=== PATIENT | female | born 1965 | race Two or more races ===

== ENCOUNTER 2024-03-11 13:42 | Emergency (ER) | payer MEDICAID, OTHER ==
[~2024-03-11] VITALS: Ht 167.6 cm; Wt 65.0 kg
[2024-03-11 13:48] VITALS: BP 0/0; PULSE 0; RESP 0; O2SAT 0
--- NOTE | 2024-03-11 13:49 | ED.PDOC ---
CPR-HPI HPI Comments 63-year-old female presents to the ED via EMS with CPR in progress via Yovanny machine. Per EMS, family on scene mentioned they have patient was complaining of shortness a breath this morning, went out in wound they came back the found patient unresponsive on the floor at home. EMS reports a total workup of 35 minutes including 10 minutes prior to ED arrival and following treatments were given; six epi, D10 status post blood glucose reading 46 which increased it to 220 after medication. EMS reports gaining ROSC with a heart rate of 120 on scene, lost pulse, CPR was initiated once again and regain ROSC for the 2nd time in route with a heart rate of 40 but lost pulse prior to ED arrival. Patient has a medical history of hypertension and diabetes. No further information obtained as family is not at bedside at this time and no medical records indicate patient has been seen at this hospital due to incomplete date of information. Chief Complaint: CPR Time Seen by MD: 13:49 Reviewed Notes: Nurses Notes, Insole Rasper Notes, Medications, Allergies Allergies: Coded Allergies: UNOBTAINABLE (Unverified , 03/11/24) Information Source: Emergency Med Personnel Mode of Arrival: EMS Timing: Hours Duration: Down time prior EMS: (35), Total time prior hopital: (45) Onset: At rest Available Hx: Unknown Inital rhythm: Asystole, PEA, Undetermined Treatment: CPR, IV, Epinephrine (6), Other (D10 ) Response: Transient return of pulse Associated signs and symptoms: Unknown Past Medical History PAST MEDICAL HISTORY: DM, HTN Surgical History: Unobtainable GLASS BREAKER History: Unobtainable Family History Family History: Unobtainable Social History Smoker: Unobtainable Alcohol: Unobtainable Drugs: Unobtainable Lives In: Home Unable to Obtain due to: Altered Mental Status, Medical Urgency Physical Exam General Appearance: Severe Distress HEENT: Other (Pupils fixed dilated) Neck: NOT DONE Respiratory: Respiratory Distress, Other (Intubated the patient) Cardiovascular: Other (No pulse) Breast Exam: Deferred Gastrointestinal: Soft Genitalia: Deferred Pelvic: Deferred Rectal: Deferred Extremities: NOT DONE Neurologic: Other (Unconscious) Cerebellar Function: NOT DONE Reflexes: NOT DONE Skin: Pallor Peripheral Pulses: 0 Radial (R), 0 Radial (L) Lymphatic: NOT DONE Was a procedure done? Was a procedure done?: Yes Sedation Sedation?: No Central Line Recorder of insertion practice: Manufacturing Cost Estimator Occupation of mail inserter: Attending Physician Indication: Hypotension, CVP monitoring, Volume resuscitation, Inability to obtain IV Room prepared for procedure: Yes Manufacturing Cost Estimator performed hand hygien: Yes Maximal sterile barrier precau: Mask/Eye shield, Sterile gown, Cap, Sterlie gloves, Large sterlie drape Skin Preparation: Providine iodine Skin preparation completely dr: Yes Insertion site: Left, Femoral Central line catheter type: Tunneled- not dialysis Number of lumens: 3 Central line exchanged over a: Yes Antiseptic ointment applied to: Yes Post Assessment: Chest X-Ray, Proper placement Informed consent obtained: No Risks/benefits/alt described: No Intubation Indication: Respiratory Insufficiency, Altered Mental Status, Airway Protection Prep: No Preoxygenation Intubation Approach: Orotracheal Intubation size: cm (8) Informed consent obtained: No Risks/benefits/alt described: No Differential Dx CPR Differential Diagnosis: Cardiopulmonary arrest, Cardiac Tamponade, Dysrhythmia, Electrolyte disorder, Myocardial Infarction, Pneumothorax, Pulmonary Embolus, Respiratory Failure X-Ray, Labs, Meds, VS Vital Signs Date Time Temp Pulse Resp B/P (MAP) Pulse Ox O2 Delivery O2 Flow Rate FiO2 1/4/25 13:48 0 0 0/0 (0) 0 Patient unconscious. Came in at CPR. Pupils fixed and dilated. Continuous CPR. Intubate the patient. Place a central line. Possible kidney disease. ACLS drugs use. Able to revive the patient. After a few minutes she started to going to asystole. Started epinephrine drip. Continuous CPR. ACLS drugs used. Unable to revive the patient. Waiting for family. Spoke with the team. Pronounce the patient. Time of 1ST Reevaluation: 13:58 Reevaluation 1ST: Unchanged Patient Education/Counseling: Pt Unresponsive Family Education/Counseling: No Family Present Additional Information I reviewed the following notes from patient's past medical encounters: None The following tests were ordered, and results were reviewed by me: (Labs, XY, EKG) Additional Information was gathered from interviewing the following independent historians: EMS I reviewed and agreed with the following test results read by other providers: (X-Ray, CT, US) I discussed treatment and results with medical personnel Departure 1 Departure Time of Disposition: 14:46 Impression: Primary Impression: Cardiac arrest Disposition: 20 Condition: Other Critical Care Note Critical Care Time?: Yes (45 min-critical care time only) Heart Score Heart Score: Heart Score Response (Comments) Value History Highly Suspicious 2 EKG N/A 0 Age >65 2 Risk Factors >3 or Hx ASHD 2 Troponin N/A 0 Total 6 Stability Stability form required: No I personally scribed for BAILEY HEAD MD ([email or web address]) on 03/11/24 at 13:49. Electronically submitted by Joanne Potter ([facility]). I personally scribed for BAILEY HEAD MD ([email or web address]) on 03/11/24 at 13:59. Electronically submitted by Joanne Potter ([facility]). I personally scribed for BAILEY HEAD MD ([email or web address]) on 03/11/24 at 14:10. Electronically submitted by Joanne Potter ([facility]). BAILEY HEAD MD Mar 11, 2024 13:49
[2024-03-11] MEDS ORDERED: EPINEPHrine HCL 250 ML IV ONE (13:50)
--- NOTE | 2024-03-11 19:50 | RESUS ---
CODE RAFI ASSESSSMENT History of Events History of Events: SECURED CODE RAFI ARRIVED WITH LEFT TIBIA I/O AND IGOR DEVICE AFTER BEING FOUND UNRESPONSIVE BY FAMILY Initial Information Date: Mar 11, 2024 Time: 13:40 Location of Arrest: In Field Arrest Witnessed: No CPR started by whom: EMS Pre-Hospital Care: ACLS Type of arrest: Cardiac, Adult, Unwitnessed Spontaneous Respirations: No Pulse Present: No Monitoring: ECG, Pulse Oximetry Crash Cart Opened and Supplies: Yes Airway Ventilation Breathing at Onset: Assisted Oxygen Delivery Method: Ambu-Bag Time of first Assisted Ventila: 13:40 Artificial Ventilation: Bag/Mask Intubation Time: 13:44 Intubation Size: 8.0 cuffed Intubated by: SHAHRZAD TIPTON Intubation Attempts: 2 Intubated orally: Yes Tube secured at: 24 Cricoid pressure done: No CO2 indicator used: Yes Confirmation: Auscultation, Exhaled CO2 Suctioning (Oral/Tracheal): Yes Circulation Circulation #1: Time: 13:41 Pulse Rate (adult): 0 Blood Pressure Systolic: 0 Blood Pressure Diastolic: 0 Circulation Comment: [place]STOLE Circulation #2: Time: 13:43 Pulse Rate (adult): 0 Blood Pressure Systolic: 0 Blood Pressure Diastolic: 0 Circulation Comment: [place] Circulation #3: Time: 13:45 Pulse Rate (adult): 40 Blood Pressure Systolic: 92 Blood Pressure Diastolic: 47 Circulation Comment: ROSC Circulation #4: Time: 14:03 Pulse Rate (adult): 0 Blood Pressure Systolic: 0 Blood Pressure Diastolic: 0 Circulation Comment: SECOND CODE BLUE, PEA Circulation #5: Time: 14:05 Pulse Rate (adult): 0 Blood Pressure Systolic: 0 Blood Pressure Diastolic: 0 Circulation Comment: [place] Circulation #6: Time: 14:07 Pulse Rate (adult): 0 Blood Pressure Systolic: 0 Blood Pressure Diastolic: 0 Circulation Comment: [place]STOLE, TIME OF PER MD Defibrillation Defbrillation : Time Defibrillator Applied: 13:41 Procedure - IV Procedure - IV : IV Side: Left IV Location: Femoral IV Catheter Type: Triple Lumen Cath IV Placed: MD Procedure - Intraosseous Site of Intraosseous: Tibia alec-medial (LEFT) Intraosseous inserted by: EMS INSERTED PRIOR TO ARRIVAL Medications & Response Medications and Responses #1: Medication Time: 13:41 ADULT Medications Given ADULT: Epinephrine 1 mg Route of Administration: IO Medications and Responses #2: Medication Time: 13:42 ADULT Medications Given ADULT: Sodium Bacarbinate 50 meq, Calcium Chloride 10 mL Route of Administration: IO Medications and Responses #3: Medication Time: 13:44 ADULT Medications Given ADULT: Sodium Bacarbinate 50 meq Route of Administration: IO Medications and Responses #4: Medication Time: 13:45 ADULT Medications Given ADULT: Epinephrine 1 mg, D50 (amp) Route of Administration: IO Medications and Responses #5: Medication Time: 13:47 ADULT Medications Given ADULT: Sodium Bacarbinate 50 meq Route of Administration: IO Medications and Responses #6: Medication Time: 14:03 ADULT Medications Given ADULT: Epinephrine 1 mg, Sodium Bacarbinate 50 meq Route of Administration: IV Medications and Responses #7: Medication Time: 14:05 ADULT Medications Given ADULT: Epinephrine 1 mg Route of Administration: IV Nurses Notes Carlos Coma Scale Eye Opening: None (1) [place] Coma Scale Verbal: None (1) Carlos Coma Scale Motor: None (1) Pupil Reaction: Non Reactive Bedside Blood Glucose: 88 Time Code Ended Time Code Ended: 14:07 Post Arrest Status: Outcome of code: Unsuccessful Patient pronounced by: DR HEAD Time patient pronounced: 14:07 Code Team Present: JOSE PEÑA RN, FITO RN, CRISSY RN, EVER RN, SHAHRZAD RT, LI RT, KODI RT, Jose Li Mar 11, 2024 19:50
[2024-03-13] MEDS ORDERED: ALBUTEROL SULF 2.5 MG/0.5ML(0.5%) NEB SOLN ONE (11:07)
[2024-03-13] MEDS ORDERED: IPRATROPIUM BROM 0.5 MG/2.5ML INH SOL ONE (11:07)
== END 2024-03-11 14:07 ==
LOC: ER 13:42 → EDBD 13:42 → ER 14:07
DX: I46.9 Cardiac arrest, cause unspecified (principal); E11.9 Type 2 diabetes mellitus without complications; I10 Essential (primary) hypertension
CPT/HCPCS: 31500; 36556; 82947; 92950; 99285; J0171